=== PATIENT | female | born 1970 | race Caucasian/White ===

== ENCOUNTER 2021-09-17 09:59 | Outpatient (REF) | payer OTHER, SELFPAY ==
[2021-09-17 10:41] LABS: SARS Covid-2 Antigen Negative (Negative)
== END 2021-09-17 10:00 | disposition home or self-care (01) ==
LOC: LAB 09:59
PROVIDERS: Visit Provider Dermatology
DX: Z20.822 Contact with and (suspected) exposure to COVID-19 (principal)
CPT/HCPCS: 87426

== ENCOUNTER 2023-08-19 14:04 | Outpatient (CLI) | payer OTHER, SELFPAY ==
[2023-08-19 14:39] LABS: SARS Covid-2 Antigen negative (Negative)
== END 2023-08-19 14:05 | disposition home or self-care (01) ==
PROVIDERS: PCP Internal Medicine; Visit Provider Internal Medicine
DX: Z11.52 Encounter for screening for COVID-19 (principal); Z20.822 Contact with and (suspected) exposure to COVID-19
CPT/HCPCS: 36415; 87426